=== PATIENT | female | born 1930 | race Caucasian/White ===

== ENCOUNTER → 2016-11-26 | Day surgery (SDC) | payer OTHER, BC ==
[~2016-11-26] VITALS: Ht 162.6 cm; Wt 77.5 kg
[~2016-11-26] MED LIST: ACETAMINOPHEN/HYDROcodone 325 MG/5 MG TAB PO PRN; ADVA250A INH; ASPI1TAB69 PO; BOSW5TAB PO; DO NOT ADM ANY ANTICOAGULANT DRUGS XX PRN; FLUO1TAB3 PO; FOLI1TAB4 PO; INSULIN HUMAN REGULAR 1,000 UNITS/10 ML VIAL SQ PRN; KETAMINE HCL 500 MG/5 ML VIAL ONE; LACTATED RINGER'S 1000 ML IV SCH; LEVO.1 PO; LIDOCAINE 1%/EPINEPHrine 1:100,000 SOLN 20 ML VIAL ONE; METOPROLOL TARTRATE 25 MG TAB PO PRN; MIDAZOLAM HCL 2 MG/2 ML VIAL ONE; MULTTAB67 PO; OMEP40CA2 PO; PRED5TAB PO; PRESSURE VISION PO; PROPOFOL 200 MG/20 ML AMP IV ONE; SIMV20TA PO; SODIUM CHLORID 0.9% 500 ML IV SCH; VITA100018 PO; VITA500T49 PO
[2016-11-26 11:18] LABS: AUTOMATED NEUTROPHIL # 3.9 TH/MM3 (1.8-7.7); BASOPHIL % 0.6 % (0.0-2.0); EOSINOPHIL # 0.1 TH/MM3 (0-0.4); EOSINOPHIL % 1.6 % (0.0-4.0); HEMATOCRIT 32.6 % (35.0-46.0); HEMO FLAGS DIFF FINAL; LYMPH % 27.4 % (9.0-44.0); LYMPHOCYTE # 1.8 TH/MM3 (1.0-4.8); MEAN CELL VOLUME 91.8 FL (80.0-100.0); MEAN CORPUSCULAR HEMOGLOBIN 30.2 PG (27.0-34.0); MEAN CORPUSCULAR HGB CONC 32.9 % (32.0-36.0); MONO % 9.6 % (0.0-8.0); NEUT % 60.8 % (16.0-70.0); PLATELET COUNT 192 TH/MM3 (150-450); RED BLOOD COUNT 3.56 MIL/MM3 (4.00-5.30); RED CELL DISTRIBUTION WIDTH 15.1 % (11.6-17.2); WHITE BLOOD COUNT 6.5 TH/MM3 (4.0-11.0)
[2016-11-26 11:38] VITALS: BP 128/68; PULSE 86; RESP 18; TEMP 98.2; O2SAT 96
--- NOTE | 2016-11-26 11:48 | RADRPT ---
EXAM DATE/TIME: 11/26/2016 10:29 [place] COMPARISON: No previous studies available for comparison. INDICATIONS: Evaluate pneumonia, pneumothorax, or communicable disease. MEDICAL HISTORY: None. SURGICAL HISTORY: None. ENCOUNTER: Initial ACUITY: 1 day PAIN SCORE: 0/10 LOCATION: Bilateral chest FINDINGS: The heart size is normal. There is increased density in the retrocardiac area at the left base. The lungs are otherwise clear. There is some elevation of the right hemidiaphragm. The costophrenic an gles are clear. CONCLUSION: Increased density in the retrocardiac area. This is nonspecific. It could be related to underlying process such as tortuous aorta or hiatal hernia. A lung abnormality cannot be excluded. This could be further evaluated with a PA and lateral chest x-ray at some point. Rodriguez Nicholas MD on November 26, 2016 at 11:38 Board Certified Radiologist. This report was verified electronically.
[2016-11-26 15:20] VITALS: BP 108/61; PULSE 85; RESP 16; TEMP 98.5; O2SAT 97
--- NOTE | 2016-11-27 07:52 | EKG ---
Date Performed: 11/26/2016 Time Performed: 10:50:15 PTAGE: 85 years EKG: Sinus rhythm NORMAL ECG NO PREVIOUS TRACING DOCTOR: Torrey Cabrera Interpretating Date/Time 11/27/2016 07:50:49
--- NOTE | 2016-11-29 09:36 | MP ---
cc: EDDIE TRAMMELL M.D. DATE OF SURGERY: 11/26/2016 PREOPERATIVE DIAGNOSIS Left perianal skin lesion. POSTOPERATIVE DIAGNOSIS Left anterior perianal lesion. PROCEDURE Excisional biopsy of perianal lesion with primary closure. SURGEON Dr. Trammell ESTIMATED BLOOD LOSS Minimal. OPERATIVE FINDINGS This patient has a left anterior perianal skin lesion that is at least 6-7 cm long and probably 3-4 cm wide. This lesion seems very superficial. It has been biopsied multiple times by other physicians without any diagnosis being made. 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 The lesion extends upward right to the dentate line but is distal to the dentate line. Excisional biopsy was planned and was carried out with closure of the wound. OPERATIVE TECHNIQUE The patient was placed on the table in the left lateral position and given intravenous monitored anesthesia care. The area was injected with 0.5% Xylocaine with epinephrine. The wound was elliptically incised and then excised in a subcutaneous plane. Once this was done and the wound seemed fully excised the wound was closed from the apex outward using a 2-0 chromic suture in a simple running manner fully closing the wound. A dressing was applied. Sponge, needle and instrument counts reported as correct. The estimated blood loss was minimal. The patient tolerated the procedure well and left the operating room in good condition. MD NIKO Bryan/ISABELLA /3:17 PM /9:29 AM
== END | disposition home or self-care (01) ==
LOC: HSDC 10:12
PROVIDERS: ATTEND Colon & Rectal Surgery
DX: D04.5 Carcinoma in situ of skin of trunk (principal); I10 Essential (primary) hypertension
CPT/HCPCS: 00400; 11606; 71010; 85025; 88305; 93005; J2250; J7120; 88304